=== PATIENT | male | born 1965 | race Hispanic/Latino ===

== ENCOUNTER 2022-06-28 22:54 | Observation (INO) | payer BC ==
--- NOTE | 2022-06-28 23:29 | RAD REPORT ---
EXAM DESCRIPTION: RAD - Chest Single View - 06/28/2022 11:20 pm CLINICAL HISTORY: CHEST PAIN Chest pain. COMPARISON: <Comparisons> FINDINGS: Portable technique limits examination quality. The lungs are grossly clear. The heart is normal in size. No displaced fractures. IMPRESSION: No acute intrathoracic process suspected.
[2022-06-29 00:14] LABS: Absolute Lymphocytes (CBC) 2.4 K/uL (0.7-4.9); Lymphocytes % 29.6 % (15.3-44.8); MCV 84.6 fL (80-100); MPV 6.9 fL (7.6-11.3); RBC Red Blood Cell Count 4.84 M/uL (4.33-5.43)
[2022-06-29 00:17] LABS: Protime INR 1.17
[2022-06-29 00:33] LABS: Albumin 3.6 g/dL (3.4-5.0); Bilirubin Direct 0.1 mg/dL (0-0.2); Bilirubin Total 0.5 mg/dL (0.2-1.0); Potassium 4.1 mmol/L (3.5-5.1); Troponin High Sensitivity 10.4 pg/mL (<58.9)
[2022-06-29 00:34] LABS: SARS-CoV-2 Antigen Rapid Res Negative (Negative)
[2022-06-29 00:36] LABS: Urine Blood Negative (Negative); Urine Glucose Negative (Negative); Urine Protein Negative (Negative); Urine Specific Gravity 1.025 (1.005-1.030); Urine pH 5.5 (5.0-7.0)
--- NOTE | 2022-06-29 00:42 | ER ---
Nurse's Notes [facility] Name: Bruno Senior Age: 57 yrs Sex: Male : 1965 Arrival Date: 06/28/2022 Time: 22:55 Bed 5 Private MD: Diagnosis: Chest pain, unspecified Presentation: 06/28 23:08 Chief complaint: Patient states: "I was just sitting watching TV when the chest pain tw5 started." He further states the pain starts in the middle of his chest and moves up his neck. He also states he has been feeling sweaty. Coronavirus screen: Vaccine status: Patient reports receiving the 2nd dose of the covid vaccine. Moderna. Ebola Screen: Patient negative for fever greater than or equal to 101.5 degrees Fahrenheit, and additional compatible Ebola Virus Disease symptoms Patient denies exposure to infectious person. Patient denies travel to an Ebola-affected area in the 21 days before illness onset. Initial Sepsis Screen: Does the patient meet any 2 criteria? No. Patient's initial sepsis screen is negative. Does the patient have a suspected source of infection? No. Patient's initial sepsis screen is negative. Risk Assessment: Do you want to hurt yourself or someone else? Patient reports no desire to harm self or others. Onset of symptoms was June 28, 2022 at 20:00. 23:08 Method Of Arrival: Ambulatory tw5 23:08 Acuity: KIMBERLY 2 tw5 Triage Assessment: 06/29 02:48 General: Appears in no apparent distress. uncomfortable, obese, Behavior is calm, vc1 cooperative, appropriate for age. Pain: Complains of pain in chest Noted to be. EENT: No deficits noted. Neuro: Level of Consciousness is awake, alert, obeys commands, Oriented to person, place, time, situation, Appropriate for age. Cardiovascular: Reports chest pain, diaphoresis, Capillary refill < 3 seconds Patient's skin is warm and dry. Respiratory: Airway is patent Respiratory effort is even, labored, Respiratory pattern is regular, symmetrical. GI: No deficits noted. : No deficits noted. Derm: No deficits noted. Musculoskeletal: No deficits noted. Historical: - Allergies: 06/28 23:00 No Known Allergies; vc1 - Home Meds: 23:00 None [Active]; vc1 - PMHx: 23:00 diabetes mellitus; Hypertensive disorder; vc1 - PSHx: 23:00 None; vc1 - Immunization history:: Adult Immunizations up to date. - Family history:: not pertinent. - Social history:: Smoking status: Patient denies any tobacco usage or history of. - Hospitalizations: : No recent hospitalization is reported. Screenin:00 Abuse screen: Denies threats or abuse. Nutritional screening: No deficits noted. vc1 Tuberculosis screening: No symptoms or risk factors identified. Fall Risk None identified. Assessment: 06/29 00:00 Reassessment: Patient and/or family updated on plan of care and expected duration. Pain vc1 level reassessed. Patient is alert, oriented x 3, equal unlabored respirations, skin warm/dry/pink. 01:00 Reassessment: Patient and/or family updated on plan of care and expected duration. Pain vc1 level reassessed. Patient is alert, oriented x 3, equal unlabored respirations, skin warm/dry/pink. Patient states feeling better. Patient states symptoms have improved. 02:00 Reassessment: Patient and/or family updated on plan of care and expected duration. Pain vc1 level reassessed. Patient is alert, oriented x 3, equal unlabored respirations, skin warm/dry/pink. Patient denies pain at this time. 02:57 Reassessment: Patient and/or family updated on plan of care and expected duration. Pain vc1 level reassessed. Patient is alert, oriented x 3, equal unlabored respirations, skin warm/dry/pink. Patient denies pain at this time. Vital Signs: 06/28 23:08 BP 191 / 88; Pulse 71; Resp 18; Temp 98.6; Pulse Ox 99% ; Weight 119.29 kg; Height 5 tw5 ft. 10 in. (177.80 cm); Pain 8/10; 06/29 00:20 BP 160 / 78; rn 00:45 BP 151 / 75; Pulse 81; Resp 23; Pulse Ox 99% on R/A; jb4 02:30 BP 159 / 77; Pulse 84; Resp 23; Pulse Ox 100% ; vc1 03:15 BP 133 / 68; Pulse 74; Resp 17; Pulse Ox 98% ; vc1 06/28 23:08 Body Mass Index 37.74 (119.29 kg, 177.80 cm) tw5 ED Course: 06/28 22:55 Patient arrived in ED. tw5 23:00 Yaya Horton MD is Attending Physician. rn 23:00 Arm band placed on right wrist. vc1 23:00 Patient has correct armband on for positive identification. Client placed on continuous vc1 cardiac and pulse oximetry monitoring. NIBP monitoring applied. 23:10 Triage completed. tw5 23:21 XRAY Chest (1 view) In Process Unspecified. EDMS 06/29 00:35 Zakiya Lee, RIC is Primary Nurse. vc1 00:41 Gideon Humphries MD is Hospitalizing Provider. rn 01:25 CT Aorta for Dissection In Process Unspecified. EDMS 03:25 No provider procedures requiring assistance completed. Patient admitted, IV remains in vc1 place. Administered Medications: 03:38 Not Given (Patient Refused): morphine 4 mg IVP once over 4 mins vc1 03:38 Not Given (Patient Refused): Zofran (Ondansetron) 4 mg IVP once; over 2 minutes vc1 Medication: 02:56 VIS not applicable for this client. vc1 Outcome: 00:41 Decision to Hospitalize by Provider. rn 03:30 Condition: good vc1 03:30 Instructed on medication usage. 04:09 Admitted to Med/surg accompanied by nurse, via wheelchair, room 404, Report called to vc1 RIC Hernandez 04:15 Patient left the ED. vc1 Signatures: Dispatcher [employer] [facility] Yaya Horton MD MD rn Bryson, James, RN RN jb4 Wood, Tiffany tw5 Zakiya Lee, RN RN vc1
--- NOTE | 2022-06-29 00:42 | EDPHYS ---
Physician Documentation [facility] Name: Bruno Senior Age: 57 yrs Sex: Male : 1965 Arrival Date: 06/28/2022 Time: 22:55 Bed 5 Private MD: ED Physician Yaya Horton HPI: 06/28 23:20 This 57 yrs old Male presents to ER via Ambulatory with complaints of chest pain. rn 23:20 The patient or guardian reports chest pain that is located primarily in the substernal rn area. Onset: just prior to arrival. The pain radiates to neck. Associated signs and symptoms: Pertinent positives: diaphoresis, Pertinent negatives: abdominal pain, dizziness, shortness of breath, syncope, vomiting. The chest pain is described as aching, a heaviness. Duration: The patient or guardian reports a single episode, that is still ongoing. Modifying factors: The symptoms are alleviated by nothing. the symptoms are aggravated by nothing. Severity of pain: At its worst the pain was moderate in the emergency department the pain is unchanged. The patient has not experienced similar symptoms in the past. The patient has not recently seen a physician. Historical: - Allergies: 23:00 No Known Allergies; vc1 - Home Meds: 23:00 None [Active]; vc1 - PMHx: 23:00 diabetes mellitus; Hypertensive disorder; vc1 - PSHx: 23:00 None; vc1 - Immunization history:: Adult Immunizations up to date. - Family history:: not pertinent. - Social history:: Smoking status: Patient denies any tobacco usage or history of. - Hospitalizations: : No recent hospitalization is reported. ROS: 23:20 Constitutional: Negative for fever, chills, and weight loss, Eyes: Negative for injury, rn pain, redness, and discharge, Neck: + neck pain Cardiovascular: Negative for palpitations, and edema Respiratory: Negative for shortness of breath, cough, wheezing, and pleuritic chest pain, Abdomen/GI: Negative for abdominal pain, nausea, vomiting, diarrhea, and constipation, Back: Negative for injury and pain, MS/Extremity: Negative for injury and deformity, Skin: Negative for injury, rash, and discoloration, Neuro: Negative for weakness, numbness, tingling, and seizure. Exam: 23:20 Constitutional: This is a well developed, well nourished patient who is awake, alert, rn appears anxious, but laying in stretcher with hands behind his head reclined Head/Face: Normocephalic, atraumatic. Eyes: Periorbital areas with no swelling, redness, or edema. Cardiovascular: Regular rate and rhythm. No pulse deficits. Respiratory: No increased work of breathing, no retractions or nasal flaring. Abdomen/GI: Soft, non-tender Skin: Warm, dry MS/ Extremity: Pulses equal, no cyanosis. Neuro: Awake and alert, GCS 15, oriented to person, place, time, and situation. Cranial nerves II-XII grossly intact. Motor strength 5/5 in all extremities. Sensory grossly intact. Cerebellar exam normal. 06/29 00:50 ECG was reviewed by the Attending Physician. rn Vital Signs: 06/28 23:08 BP 191 / 88; Pulse 71; Resp 18; Temp 98.6; Pulse Ox 99% ; Weight 119.29 kg; Height 5 tw5 ft. 10 in. (177.80 cm); Pain 8/10; 06/29 00:20 BP 160 / 78; rn 00:45 BP 151 / 75; Pulse 81; Resp 23; Pulse Ox 99% on R/A; jb4 02:30 BP 159 / 77; Pulse 84; Resp 23; Pulse Ox 100% ; vc1 03:15 BP 133 / 68; Pulse 74; Resp 17; Pulse Ox 98% ; vc1 06/28 23:08 Body Mass Index 37.74 (119.29 kg, 177.80 cm) tw5 MDM: 06/28 23:00 Patient medically screened. rn 06/29 00:40 Differential diagnosis: acute myocardial infarction, acute pericarditis, anxiety, rn coronary artery disease chest wall pain, costochondritis, esophagitis, gastritis, gastroesophageal reflux disease (GERD), pleurisy, pneumothorax, stable angina, thoracic aortic disection. Data reviewed: vital signs, nurses notes, lab test result(s), EKG, radiologic studies, plain films, and as a result, I will admit patient. Counseling: I had a detailed discussion with the patient and/or guardian regarding: the historical points, exam findings, and any diagnostic results supporting the discharge/admit diagnosis, lab results, radiology results, the need for further work-up and treatment in the hospital. Response to treatment: the patient's symptoms have markedly improved after treatment, the patient's condition has returned to base line, the patient is now symptom free, and as a result, I will admit patient. Admission orders: after a detailed discussion of the patient's condition and case, the admit orders are written by me. 06/28 23:07 Order name: Basic Metabolic Panel; Complete Time: 00:35 rn 06/28 23:07 Order name: CBC with Diff; Complete Time: 00:20 rn 06/28 23:07 Order name: LFT's; Complete Time: 00:35 rn 06/28 23:07 Order name: NT PRO-BNP; Complete Time: 00:35 rn 06/28 23:07 Order name: PT-INR; Complete Time: 00:20 rn 06/28 23:07 Order name: Troponin HS; Complete Time: 00:35 rn 06/28 23:07 Order name: XRAY Chest (1 view); Complete Time: 23:58 rn 06/28 23:07 Order name: SARS RAPID; Complete Time: 00:35 rn 06/28 23:07 Order name: CT Aorta for Dissection rn 06/29 00:17 Order name: Lipase; Complete Time: 00:35 EDMS 16 00:36 Order name: Urine Dipstick-Ancillary; Complete Time: 00:38 EDMS 06/28 23:07 Order name: EKG; Complete Time: 23:09 06/28 23:07 Order name: Cardiac monitoring; Complete Time: 00:35 rn 06/28 23:07 Order name: EKG - Nurse/Tech; Complete Time: 00:48 rn 06/28 23:07 Order name: IV Saline Lock; Complete Time: 00:35 rn 06/28 23:07 Order name: Labs collected and sent; Complete Time: 00:35 rn 06/28 23:07 Order name: O2 Per Protocol; Complete Time: 00:35 rn 06/28 23:07 Order name: O2 Sat Monitoring; Complete Time: 00:35 rn EC:50 Rate is 75 beats/min. Rhythm is regular. QRS Cassel is Normal. OK interval is normal. QRS rn interval is normal. QT interval is normal. No Q waves. T waves are Normal. No ST changes noted. Clinical impression: NSR w/ Non-specific ST/T Changes. Interpreted by me. Reviewed by me. Administered Medications: 03:38 Not Given (Patient Refused): morphine 4 mg IVP once over 4 mins vc1 03:38 Not Given (Patient Refused): Zofran (Ondansetron) 4 mg IVP once; over 2 minutes vc1 Disposition Summary: 06/29/22 00:41 Hospitalization Ordered Hospitalization Status: Observation rn Provider: Gideon Humphries rn Location: Telemetry/MedSurg (observation) rn Condition: Stable rn Problem: new rn Symptoms: have improved rn Bed/Room Type: Standard rn Room Assignment: 404(06/29/22 03:02) cg Diagnosis - Chest pain, unspecified rn Forms: - Medication Reconciliation Form rn - SBAR form rn Signatures: Dispatcher [employer] [facility] Yaya Horton MD MD rn Matthew Ulloa, PROVIDER RELATIONS ADVOCATE-C PROVIDER RELATIONS ADVOCATE-Cla1 Kayla Schulz RN RN cg Zakiya Lee RN RN vc1 Corrections: (The following items were deleted from the chart) 00:17 06/28 23:10 LIPASE+C.LAB.BRZ ordered. [facility] 06/29 03:02 00:41 rn cg
--- NOTE | 2022-06-29 03:00 | P.HP ---
Certification for Inpatient Patient admitted to: Observation With expected LOS: <2 Midnights Patient will require the following post-hospital care: None Practitioner: I am a practitioner with admitting privileges, knowledge of patient current condition, hospital course, and medical plan of care. Services: Services provided to patient in accordance with Admission requirements found in Title 42 Section 412.3 of the Code of Federal Regulations <Matthew Ulloa Shahida Mallory - Last Filed: 06/29/22 02:54> Patient History Date of Service: 06/29/22 Reason for admission: Chest pain rule out ACS History of Present Illness: 57-year-old male with history of diabetes mellitus type [id number], hypertension, hyperlipidemia, GERD presents emergency department for chest pain. He reports that he was seated on couch watching TV when he began to have a severe burning-like pain in the midsternal area which seem to radiate to his ne ck associated with some diaphoresis. Patient denies similar episodes in the past states it feels slightly different than his normal GERD that he does have. He was evaluated in the emergency department his initial high-sensitivity troponin was negative chest x-ray negative for acute findings CT dissection protocol was performed which was negative for acute findings as well. Patient denies any previous cardiac evaluation of any kind ED provider wishes to admit under observation for ACS rule out. - Past Medical/Surgical History -: Diabetes most type IInot insulin-dependent -: Hypertension -: Hyperlipidemia -: GERD -: None Psychosocial/ Personal History: Patient lives with his at home. - Family History Father -: Heart disease Brother -: Diabetes, Cancer - Social History Smoking Status: Never smoker Alcohol use: No CD- Drugs: No Caffeine use: Yes Place of Residence: Home <Matthew Ulloa - Last Filed: 06/29/22 02:54> Date of Service: 06/29/22 <Gideon Humphries - Last Filed: 06/29/22 13:28> Review of Systems 10-point ROS is otherwise unremarkable Cardiovascular: Chest Pain <Matthew Ulloa - Last Filed: 06/29/22 02:54> Physical Examination - Physical Exam General: Alert, In no apparent distress, Oriented x3, Obese HEENT: Atraumatic, PERRLA, Mucous membr. moist/pink, EOMI, Sclerae nonicteric Neck: Supple, 2+ carotid pulse no bruit, No LAD, Without JVD or thyroid abnormality Respiratory: Clear to auscultation bilaterally, Normal air movement Cardiovascular: Regular rate/rhythm, Normal S1 S2 Capillary refill: <2 Seconds Gastrointestinal: Normal bowel sounds, No tenderness Musculoskeletal: No tenderness Integumentary: No rashes Neurological: Normal speech, Normal strength at 5/5 x4 extr, Normal tone, Normal affect - Studies Laboratory Data (last 24 hrs) 06/28/22 23:56: PT 12.9 H, INR 1.17 06/28/22 23:56: WBC 8.00, Hgb 14.0, Hct 41.0, Plt Count 166 06/28/22 23:56: Sodium 139, Potassium 4.1, BUN 24 H, Creatinine 1.08, Glucose 167 H, Total Bilirubin 0.5, AST 34, ALT 55, Alkaline Phosphatase 75, Lipase 67 L 06/28/22 23:07: Lipase Cancelled <Matthew Ulloa - Last Filed: 06/29/22 02:54> - Studies Laboratory Data (last 24 hrs) 06/28/22 23:56: PT 12.9 H, INR 1.17 06/28/22 23:56: WBC 8.00, Hgb 14.0, Hct 41.0, Plt Count 166 06/28/22 23:56: Sodium 139, Potassium 4.1, BUN 24 H, Creatinine 1.08, Glucose 167 H, Total Bilirubin 0.5, AST 34, ALT 55, Alkaline Phosphatase 75, Lipase 67 L 06/28/22 23:07: Lipase Cancelled <Gideon Humphries - Last Filed: 06/29/22 13:28> Assessment and Plan - Plan Assessment: Chest pain rule out ACS Diabetes mellitus type 2 [id number] Hypertension Hyperlipidemia GERD Plan: Chest pain rule out ACS: Trend troponins, monitor on telemetry, cardiology consult in place. Continue aspirin, statin, marla therapy. Patient chest pain-free at this time EKG without STEMI criteria initial troponin negative. Appreciate further input from cardiology. Diabetes mellitus type 2 [id number]: Patient takes metformin at home twice daily will cover with sliding scale during hospitalization. Hypertension: Obtain and continue on medication, initiated low-dose beta-marla therapy given onset of chest pain and concern for ACS. Hyperlipidemia: Continue statin. GERD: Continue Protonix. Possibly contributing and was described as burning. DVT PPX: Lovenox Code status: Full Discharge Plan: Home Plan to discharge in: 24 Hours - Advance Directives Does patient have a Living Will: No Does patient have a Durable POA for Healthcare: No - Code Status/Comfort Care Code Status Assessed: Yes (Full code) Critical Care: No Time Spent Managing Pts Care (In Minutes): 55 <Matthew Ulloa - Last Filed: 06/29/22 02:54> Physician Review: Patient Assessed, Agree with Above Assessment and Plan <Gideon Humphries - Last Filed: 06/29/22 13:28>
[2022-06-29 04:46] VITALS: BMI 38.2
[2022-06-29] MEDS ORDERED: ONDANSETRON 4 MG/2 ML VIAL IV PRN (04:49)
[2022-06-29 05:46] LABS: Absolute Lymphocytes (CBC) 2.4 K/uL (0.7-4.9); Hematocrit 39.2 % (39.6-49.0); Lymphocytes % 27.8 % (15.3-44.8); MCV 84.6 fL (80-100); MPV 6.8 fL (7.6-11.3); RBC Red Blood Cell Count 4.64 M/uL (4.33-5.43)
[2022-06-29] MEDS ORDERED: METOPROLOL TAR 25 MG TAB PO SCH (06:00)
[2022-06-29 06:09] LABS: Albumin 3.4 g/dL (3.4-5.0); Bilirubin Total 0.4 mg/dL (0.2-1.0); Potassium 4.3 mmol/L (3.5-5.1); Protein, Total 7.5 g/dL (6.4-8.2); Troponin High Sensitivity 45.8 pg/mL (<58.9)
[2022-06-29] MEDS ORDERED: PANTOPRAZOLE 40MG TABLET PO SCH (06:30)
[2022-06-29] MEDS: INSULIN -REGULAR HUMAN 50 UNIT/0.5 ML ML SQ SCH ×2 (07:30→11:30)
[2022-06-29] MEDS ORDERED: ASPIRIN EC 81 MG TAB PO SCH (09:00)
[2022-06-29] MEDS ORDERED: ENOXAPARIN 40 MG/0.4 ML SQ SCH (09:00)
--- NOTE | 2022-06-29 10:10 | RAD REPORT ---
EXAM DESCRIPTION: CT - Angio Aorta For Dissection - 06/29/2022 1:23 am CLINICAL HISTORY: 57 years, Male, sudden onset CP, HTN, neck pain COMPARISON: None. TECHNIQUE: Multiple transaxial tomograms from the thoracic and abdominal aorta from the lung apex to the ischial tuberosities performed after the administration of large bolus of IV contrast for comple te opacification of the thoracic, abdominal aorta and iliac arteries utilizing 3 mm slice thickness a t 3 mm interval reconstruction. 2-D and 3-D multiplanar reformats, volume rendering technique and maximum intensity projection images were generated and reviewed. This exam was performed according to our departmental dose-optimization protocol, which includes auto mated exposure control, adjustment of the mA and/or kV according to patient size and/or use of iterat aleah reconstruction technique. FINDINGS: Thoracic aorta: The thoracic aorta demonstrate to be within normal limits. There is no evidence for aneurysm/or signi ficant dissection allowing for motion along the aortic root. There is normal branching pattern of the great vessels. There is very minimal atheromatous plaque formation at the inferior aspect aortic arc h. Abdominal aorta: The abdominal aorta demonstrate to be within normal limits. There is no evidence for aneurysm/or diss ection. Very minimal atheromatous plaque dimension at the aortic bifurcation. The visceral branches d emonstrate to be normal. No evidence for stenosis/or occlusion. Single bilateral renal arteries demon strate to be normal. Iliac arteries demonstrate to be unremarkable. Chest: The lung parenchyma demonstrate to be clear. No significant pulmonary nodules/or masses are identifie d. Very minimal dependent atelectatic changes lung bases. The trachea mainstem bronchus demonstrate t o be unremarkable. There is no pleural/or pericardial effusions. The heart is normal in size. There i s no significant mediastinal and/or hilar lymphadenopathy. The axillary regions demonstrate to be francisco ar. The bone windows demonstrate no significant skeletal lesions. Abdomen and pelvis: The liver demonstrate decreased attenuation corresponding to mild fatty infiltration. Posterior, gallbladder, spleen, adrenal glands, pancreas demonstrate to be unremarkable. The kidneys demonstrate normal uptake of contrast media. No evidence for hydronephrosis and/or nephro lithiasis. The unopacified stomach demonstrate to be distended with food content. Otherwise the stomach, small b owel and large bowel demonstrate to be within normal limits. The left site colon is decompressed. The appendix is unremarkable. The urinary bladder demonstrate to be within normal limits. The prostate gland demonstrate to be norm al. There is no retroperitoneal adenopathy. There is no evidence for ascites. The bone windows demonstrate no significant skeletal lesions. Minimal degenerative change is L5/S1 di sc level. IMPRESSION: No evidence for aneurysm/or dissection of the thoracic or abdominal aorta. Mild fatty infiltration of the liver. Electronically signed by: Raymond Keith MD 06/29/2022 2:25 AM CDT Due to temporary technical issues with the PACS/Fluency reporting system, reports are being signed by the in house radiologists without review as a courtesy to insure prompt reporting. The interpreting radiologist is fully responsible for the content of the report.
--- NOTE | 2022-06-29 12:29 | EKG ---
Test Date: 2022-06-29 Test Time: 00:45:28 Inside Wireman: HELENA MEASUREMENT RESULTS: Intervals: Rate: 75 SD: 172 QRSD: 94 QT: 394 QTc: 439 [place]: P: 32 SD: 172 QRS: -25 T: 9 INTERPRETIVE STATEMENTS: Normal sinus rhythm Incomplete right bundle branch block Borderline ECG No previous ECG available for comparison Electronically Signed On 06-29-22 12:28:03 CDT by Richard Rice
--- NOTE | 2022-06-29 12:50 | ECHO ---
HEIGHT: 5 ft 10 in WEIGHT: 266 lb 14.4 oz DATE OF STUDY: 06/29/[address]: Gideon Humphries MD 2-DIMENSIONAL: YES M.MODE: YES DOPPLER: YES COLOR FLOW: YES TDS: PORTABLE: YES DEFINITY: BUBBLE STUDY: DIAGNOSIS: CHEST PAIN CARDIAC HISTORY: CATHERIZATION: NO SURGERY: NO PROSTHETIC VALVE: NO PACEMAKER: NO MEASUREMENTS (cm) DIASTOLIC (NORMALS) SYSTOLIC (NORMALS) IVSd 1.4 (0.6-1.2) LA Diam 4.4 (1.9-4.0) LVEF 57% LVIDd 4.1 (3.5-5.7) LVIDs 2.9 (2.0-3.5) %FS 29% LVPWd 1.4 (0.6-1.2) Ao Diam 2.9 (2.0-3.7) 2 DIMENSIONAL ASSESSMENT: RIGHT ATRIUM: LEFT ATRIUM: RIGHT VENTRICLE: LEFT VENTRICLE: TRICUSPID VALVE: MITRAL VALVE: PULMONIC VALVE: AORTIC VALVE: PERICARDIAL EFFUSION: AORTIC ROOT: LEFT VENTRICULAR WALL MOTION: DOPPLER/COLOR FLOW: COMMENTS: NORMAL 2-DIMESIONAL ECHOCARDIOGRAM WITH DOPPLER. NO WALL MOTION ABNORMALITY. NO EFFUSION. TECHNOLOGIST: ARIANA GALLOWAY
--- NOTE | 2022-06-29 13:40 | P.DS ---
Admission Date: 06/29/22 Discharge Date: 06/29/22 Disposition: ROUTINE DISCHARGE Discharge Condition: GOOD Reason for Admission: Chest pain rule out ACS Consultations: 1. Cardiology Hospital Course: DIAGNOSES: # Atypical Chest Pain # Hyperglycemia in Type II Diabetes Mellitus # Hypertension # Hyperlipidemia # Gastroesophageal Reflux Disease # Obesity - BMI 38.3 kg/m2 # Mild Hepatic Steatosis HOSPITAL COURSE: Mr. Bruno Senior is a pleasant 57-year-old male with a past medical history significant for type 2 diabetes mellitus, hypertension, hyperlipidemia, and gastroesophageal reflux disease who was admitted to the [facility] on 06/29/2022 for chest pain. He was admitted to the Medicine service. His EKG was reportedly without STEMI criteria. His troponin trend was 10.4, 45.8, and 30.9, respectively. His d-dimer was <215. Chest x-ray revealed, "no acute intrathoracic process suspected." CT dissection protocol revealed, "no evidence for aneurysm/or dissection of the thoracic or abdominal aorta. Mild fatty infiltration of the liver." A transthoracic echocardiogram revealed, "normal 2-dimesional echocardiogram with doppler. no wall motion abnormality. no effusion." Cardiology was consulted and he was evaluated by Dr. Rice. He has cleared him for discharge with outpatient follow-up for a cardiac stress test. On 06/29/2022, he was seen on rounds and deemed medically stable for discharge. He was discharged with instructions to schedule follow-up appointments with his PCP in 3-5 days and with Cardiology (Dr. Rice) in 5-7 days. He and his were given the opportunity to ask questions and reported no further questions. Furthermore, all questions were answered to the best of my ability. Today, I personally spent 20 minutes on his case, of which greater than 50% of the time was spent in patient education, counseling, and coordination of care as described above. Vital Signs/Physical Exam: Temp Pulse Resp BP Pulse Ox 97.6 F 65 16 129/70 97 06/29/22 12:00 06/29/22 12:00 06/29/22 12:00 06/29/22 12:00 06/29/22 12:00 General: Alert, In no apparent distress, Oriented x3 HEENT: Atraumatic, PERRLA Neck: Supple, JVD not distended Respiratory: Clear to auscultation bilaterally, Normal air movement Cardiovascular: No edema, Regular rate/rhythm, Normal S1 S2, No gallops, No rubs, No murmurs Gastrointestinal: Normal bowel sounds, Soft and benign, Non-distended, No tenderness, No rebound, No guarding Musculoskeletal: No clubbing Integumentary: No rashes Neurological: Normal speech, Cranial nerves 3-12 intact, Normal affect Laboratory Data at Discharge: WBC 8.50 K/uL (4.3-10.9) 06/29/22 05:28 Hgb 13.4 g/dL (13.6-17.9) L 06/29/22 05:28 Hct 39.2 % (39.6-49.0) L 06/29/22 05:28 Plt Count 175 K/uL (152-406) 06/29/22 05:28 PT 12.9 SECONDS (9.5-12.5) H 06/28/22 23:56 INR 1.17 06/28/22 23:56 Sodium 137 mmol/L (136-145) 06/29/22 05:28 Potassium 4.3 mmol/L (3.5-5.1) 06/29/22 05:28 BUN 23 mg/dL (7-18) H 06/29/22 05:28 Creatinine 1.06 mg/dL (0.55-1.3) 06/29/22 05:28 Glucose 204 mg/dL (74-106) H 06/29/22 05:28 Total Bilirubin 0.4 mg/dL (0.2-1.0) 06/29/22 05:28 AST 22 U/L (15-37) 06/29/22 05:28 ALT 50 U/L (12-78) 06/29/22 05:28 Alkaline Phosphatase 76 U/L (45-117) 06/29/22 05:28 Triglycerides 213 mg/dL (<150) H 06/29/22 05:28 Cholesterol 122 mg/dL (<200) 06/29/22 05:28 HDL Cholesterol 36 mg/dL (40-60) L 06/29/22 05:28 Cholesterol/HDL Ratio 3.39 06/29/22 05:28 Lipase 67 U/L (73-393) L 06/28/22 23:56 Home Medications: Cetirizine HCl 10 mg PO DAILY 06/29/22 Lisinopril [Zestril] 10 mg PO DAILY 06/29/22 Metformin ER [Glucophage ER*] 1,000 mg PO BID 06/29/22 Pantoprazole [Protonix Tab*] 40 mg PO DAILY 06/29/22 Pravastatin [Pravachol*] 80 mg PO DAILY 06/29/22 Physician Discharge Instructions: 1. Please schedule a follow-up appointment with your PCP in 3-5 days 2. Please schedule a follow-up appointment with Cardiology (Dr. Rice) in 5-7 days to schedule a cardiac stress test Diet: AHA Activity: Ad jigar Followup: Richard Rice MD [ACTIVE - CAN ADMIT] - Unknown,U [Primary Care Provider] - Time spent managing pt's care (in minutes): 20
[2022-06-29] MEDS ORDERED: ATORVASTATIN 40 MG TAB PO SCH (21:00)
[2022-06-30 14:11] VITALS: TEMP 98.6
[2022-06-30 14:19] VITALS: BP 133/68; O2SAT 98
--- NOTE | 2022-07-01 19:15 | CON ---
Date of Consultation: 06/29/2022 Reason For Consultation: Chest pain. History Of Present Illness: Mr. Senior is a 57-year-old male, came in with substernal chest pain r adiating to the left neck and to the back, without any nausea, vomiting, diaphoresis, PND, orthopnea, pedal edema, palpitations, or syncope. Symptoms have been going on for about 2-3 days without any f ever or chills yet. He has multiple cardiac risk factors including diabetes, hypertension, dyslipide milton. He had an echocardiogram on the day that I saw him, which was normal. EKG showed incomplete ri ght bundle-branch block. CT dissection was normal. Chest x-ray was normal. Troponin was normal. 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 He is pain free now. Past Medical History: As stated above. Allergies: NONE. Review of Systems: Negative. Social History: Negative. Family History: Negative. Medications: He does not take any medications at the present. He controls his issues with diet. Physical Examination: Vital Signs: Stable, afebrile. HEENT: Negative. Neck: Supple without any bruit, lymphadenopathy, JVD, or thyromegaly. Chest: Clear to auscultation and percussion. Cardiac: Revealed a regular rhythm and rate. No murmurs, gallops, or rubs. Abdomen: Benign. Extremities: Revealed no clubbing, cyanosis, or edema. Diagnostic Data: All the diagnostic data were stated earlier and they were normal except for a gluco se of 165. His triglyceride was 213. Impression And Plan: Atypical chest pain, probably gastric. However, the patient has high blood pre ssure, diabetes, and dyslipidemia, and he needs to have an outpatient MPI in the very near future and see me. He can go home as far as I am concerned. Case was discussed with Dr. Humphries. PARRISH/LATANYA Voice ID: [id number] Report ID: [id number]
== END 2022-06-29 15:23 | disposition home or self-care (01) ==
LOC: ER 22:54 → ERHOLD 06-29 02:24 → 4TH 06-29 03:27
PROVIDERS: ADMIT Internal Medicine; ATTEND Internal Medicine
DX: R07.89 Other chest pain (principal); I10 Essential (primary) hypertension; E11.65 Type 2 diabetes mellitus with hyperglycemia; E78.5 Hyperlipidemia, unspecified; K21.9 Gastro-esophageal reflux disease without esophagitis; K76.0 Fatty (change of) liver, not elsewhere classified; E66.9 Obesity, unspecified; Z68.38 Body mass index [BMI] 38.0-38.9, adult; Z20.822 Contact with and (suspected) exposure to COVID-19; Z82.49 Family history of ischemic heart disease and other diseases of the circulatory system; Z83.3 Family history of diabetes mellitus; Z80.9 Family history of malignant neoplasm, unspecified
CPT/HCPCS: 93005; 93306; 85025 ×2; 80048; 36415; 85610; 80061; 82947 ×2; 85379; 80076; 81003; 83036; 84484 ×3; 83690; 80053; 83880; 71275; 74175; 71045; 99285; 87811; Q9967; J1650; G0378 ×2

== ENCOUNTER 2022-12-18 09:09 | Observation (INO) | payer BC ==
[~2022-12-18 09:09] MED LIST: RSI MEDICATION KIT IV ONE
[2022-12-18] MEDS ORDERED: NA CHLORIDE 0.9% 3,000 ML ONE (10:18)
[2022-12-18 10:22] LABS: Absolute Lymphocytes (CBC) 1.7 K/uL (0.7-4.9); Hematocrit 42.4 % (39.6-49.0); Lymphocytes % 34.6 % (15.3-44.8); MCV 86.8 fL (80-100); RBC Red Blood Cell Count 4.88 M/uL (4.33-5.43)
[2022-12-18 10:23] LABS: Protime INR 1.06
[2022-12-18 10:40] LABS: Urine Blood Negative (Negative); Urine Glucose 3+ (Negative); Urine Protein Negative (Negative); Urine pH 5.5 (5.0-7.0)
[2022-12-18 10:44] LABS: SARS-CoV-2 Antigen Rapid Res Negative (Negative)
[2022-12-18 10:58] LABS: Albumin 3.7 g/dL (3.4-5.0); Bilirubin Direct 0.3 mg/dL (0-0.2); Bilirubin Total 0.9 mg/dL (0.2-1.0); Magnesium 2.3 mg/dL (1.6-2.4); Potassium 4.7 mmol/L (3.5-5.1); Protein, Total 7.8 g/dL (6.4-8.2); Troponin High Sensitivity 4.4 pg/mL (<58.9)
[2022-12-18] MEDS ORDERED: INSULIN -REGULAR HUMAN 50 UNIT/0.5 ML ML ONE (11:13)
--- NOTE | 2022-12-18 12:25 | RAD REPORT ---
EXAM DESCRIPTION: Jerad Single View12/18/2022 11:38 am CLINICAL HISTORY: Cough COMPARISON: 2021 FINDINGS: The lungs appear clear of acute infiltrate. The heart is normal size IMPRESSION: No acute abnormalities displayed
[2022-12-18] MEDS ORDERED: HYDROCODONE/APAP 5/325 MG TAB PO PRN (12:37)
[2022-12-18] MEDS ORDERED: ACETAMINOPHEN 325 MG TABLET PO PRN (12:37)
[2022-12-18] MEDS ORDERED: INSULIN -REGULAR HUMAN 50 UNIT/0.5 ML ML SQ SCH (12:38)
[2022-12-18] MEDS ORDERED: ONDANSETRON 4 MG/2 ML VIAL IV PRN (12:38)
[2022-12-18] MEDS ORDERED: INSULIN LISPRO 100 UNIT/1 ML SQ SCH (12:46)
[2022-12-18] MEDS ORDERED: D50W 25 GM/50 ML SYRINGE IV PRN (12:46)
[2022-12-18] MEDS ORDERED: GLUCAGON 1 MG/VIAL IM PRN (12:46)
--- NOTE | 2022-12-18 12:48 | P.HP ---
Certification for Inpatient Patient admitted to: Observation With expected LOS: <2 Midnights Patient will require the following post-hospital care: None Practitioner: I am a practitioner with admitting privileges, knowledge of patient current condition, hospital course, and medical plan of care. Services: Services provided to patient in accordance with Admission requirements found in Title 42 Section 412.3 of the Code of Federal Regulations Patient History Date of Service: 12/18/22 Reason for admission: Hyperglycemia History of Present Illness: Patient is a 57-year-old male with a past medical history significant for DM 2, hypertension, hyperlipidemia, GERD who presents with complaint of elevated blood sugar level. Patient reported that his diabetic medication was changed to Trulicity 5 weeks ago after suffering from some side effects of metformin. Patient reported that his blood sugar has been above 300s in the last 5 weeks. Patient reported that today at work he decided to check his blood sugar levels and noted that his blood sugar level was 615 Mg\dl. Patient reported associated signs and symptoms of polyuria, polydipsia and headache. Patient denies any other signs and symptoms. Symptoms are aggravated or relieved by nothing. Patient decided to present to the hospital for medical evaluation. Allergies No Known Allergies Allergy (Verified 06/29/22 04:49) Home Medications: Cetirizine HCl 10 mg PO DAILY 06/29/22 Lisinopril [Zestril] 10 mg PO DAILY 06/29/22 Metformin ER [Glucophage ER*] 1,000 mg PO BID 06/29/22 Pantoprazole [Protonix Tab*] 40 mg PO DAILY 06/29/22 Pravastatin [Pravachol*] 80 mg PO DAILY 06/29/22 - Past Medical/Surgical History -: Diabetes most type IInot insulin-dependent -: Hypertension -: Hyperlipidemia -: GERD Past Surgical History: Reviewed- Non-Contributory -: None Psychosocial/ Personal History: Patient lives with his at home. - Family History Father -: Heart disease Brother -: Diabetes, Cancer - Social History Smoking Status: Never smoker Alcohol use: No CD- Drugs: No Caffeine use: Yes Place of Residence: Home Review of Systems General: Unremarkable Eyes: Unremarkable Respiratory: Unremarkable Cardiovascular: Unremarkable Gastrointestinal: Other (Polydipsia) Genitourinary: Frequency Musculoskeletal: Unremarkable Neurological: Other (Headache) Lymphatics: Unremarkable Physical Examination - Physical Exam General: Alert, In no apparent distress, Oriented x3, Cooperative HEENT: Atraumatic, PERRLA, Mucous membr. moist/pink, EOMI, Sclerae nonicteric Neck: Supple, 2+ carotid pulse no bruit, No LAD, Without JVD or thyroid abnormality Respiratory: Clear to auscultation bilaterally, Normal air movement Cardiovascular: No edema, Regular rate/rhythm, Normal S1 S2 Capillary refill: <2 Seconds Gastrointestinal: Normal bowel sounds, Soft and benign, No tenderness Musculoskeletal: No clubbing, No swelling, No contractures, No tenderness Integumentary: No rashes, No breakdown, No significant lesion Neurological: Normal gait, Normal speech, Normal strength at 5/5 x4 extr, Normal tone, Normal affect Lymphatics: No axilla or inguinal lymphadenopathy - Studies Laboratory Data (last 24 hrs) 12/18/22 10:05: PT 11.7, INR 1.06 12/18/22 10:05: WBC 4.80, Hgb 14.4, Hct 42.4, Plt Count 162 12/18/22 10:05: Sodium 130 L, Potassium 4.7, BUN 23 H, Creatinine 1.03, Glucose 513 H*, Magnesium 2.3, Total Bilirubin 0.9, AST 12 L, ALT 33, Alkaline Phosphatase 73, Lipase 26 Assessment and Plan - Plan -- DM2 with hyperglycemia. Patient placed on sliding scale insulin, Premeal insulin and Lantus. Continue IV hydration. --Hypertension. Stable. Continue home medications. --GERD. Continue Protonix. --Hyperlipidemia. Continue statin. --Hyponatremia. Secondary to hyperglycemia. Continue IV hydration with normal saline. We will keep blood sugar controlled. Continue supportive care. -- Headache. Tylenol as needed. --DVT prophylaxis with Lovenox subQ. Discharge Plan: Home Plan to discharge in: 48 Hours - Advance Directives Does patient have a Living Will: No Does patient have a Durable POA for Healthcare: No - Code Status/Comfort Care Code Status Assessed: Yes Physician Review: Patient Assessed, Agree with Above Assessment and Plan Critical Care: No
[2022-12-18] MEDS ORDERED: D10W 125 ML IV PRN (12:49)
[2022-12-18] MEDS ORDERED: NA CHLORIDE 0.9% 1,000 ML IV SCH (13:00)
[2022-12-18 15:33] VITALS: TEMP 97.3
[2022-12-18 15:39] VITALS: BP 126/74; O2SAT 98
[2022-12-18] MEDS ORDERED: INSULIN GLARGINE 100 UNIT/ML SQ SCH (21:00)
[2022-12-19] MEDS ORDERED: ENOXAPARIN 40 MG/0.4 ML SQ SCH (09:00)
[2022-12-19] MEDS ORDERED: ASPIRIN 81 MG CHEWABLE TABLET PO SCH (09:00)
== END 2022-12-18 14:40 | disposition left against medical advice (07) ==
LOC: ER 09:09 → ERHOLD 12:36
PROVIDERS: ADMIT Internal Medicine; ATTEND Internal Medicine
DX: E11.65 Type 2 diabetes mellitus with hyperglycemia (principal); I10 Essential (primary) hypertension; E78.5 Hyperlipidemia, unspecified; K21.9 Gastro-esophageal reflux disease without esophagitis; R35.89 Other polyuria; R63.1 Polydipsia; R51.9 Headache, unspecified; E87.1 Hypo-osmolality and hyponatremia; Z20.822 Contact with and (suspected) exposure to COVID-19
CPT/HCPCS: 85025; 80048; 36415; 83735; 85610; 82947 ×3; 80076; 81003; 84484; 83690; 83880; 71045; 87811; J1815; J7030; G0378